=== PATIENT | male | born 1985 | race Caucasian/White ===

== ENCOUNTER → 2020-03-19 | Outpatient (CLI) | payer OTHER ==
[~2020-03-19] MED LIST: IBUPROFEN 800800 M1 PO; KEFLEX500 M1 PO; NORCO 5-325 TA1 EAC2 PO; NORCO 5-325 TA1 EACH PO; PEPCID AC20 M1 PO; ZOFRAN4 MG PO
== END ==
LOC: M.LAB 11:03
PROVIDERS: ATTEND Surgery
DX: Z01.812 Encounter for preprocedural laboratory examination (principal); Z20.828 Contact with and (suspected) exposure to other viral communicable diseases; K80.20 Calculus of gallbladder without cholecystitis without obstruction

== ENCOUNTER → 2020-03-22 | Day surgery (SDC) | payer OTHER ==
--- NOTE | ~2020-03-22 | OP ---
[facility] [address] [place] [address] OPERATIVE REPORT Name: JERONIMO AVILES Room: [facility].#: [id number] Admission: 03/22/20 Attend Phys: Mack Stewart Discharge: Date of : 85 Report #: [id number] THIS REPORT FOR: //name// cc: Valdemar Rutledge MD, Dean L. MD ~ CC: Valdemar Stewart DATE OF SERVICE: 03/22/2020 PREOPERATIVE DIAGNOSIS: Symptomatic cholelithiasis. POSTOPERATIVE DIAGNOSIS: Symptomatic cholelithiasis. OPERATION: Laparoscopic cholecystectomy. SURGEON: Mack Stewart MD ANESTHESIA: General. ESTIMATED BLOOD LOSS: Minimal. SPECIMEN: Gallbladder. DESCRIPTION OF PROCEDURE: After informed consent was obtained, the patient was brought to the operating room and placed supine. SCDs were placed and working, preoperative antibiotics were administered, general anesthesia was induced. The abdomen was prepped and draped in the usual sterile fashion. A 10 mm incision was made above the umbilicus. Fascia was incised and a trocar was placed. Pneumoperitoneum was established. Three right upper quadrant 5 mm ports were placed. Gallbladder was grasped at the fundus and retracted cephalad. Infundibulum was grasped and retracted laterally. I dissected out the cystic duct and cystic artery as well as the cystic plate. The cystic duct and artery were clipped and ligated leaving 2 clips on the remaining duct and one on the remaining artery. Gallbladder was then taken off the liver bed with electrocautery. There was excellent hemostasis. Gallbladder was then placed into an Endopouch and removed. Fascia was then closed with a glydlm-ko-kemrb 0 Vicryl. Skin was closed with 4-0 Monocryl. Incisions were sealed with Dermabond. COMPLICATIONS: [place] [address] OPERATIVE REPORT Name: JERONIMO AVILES Room: [facility]#: [id number] Admission: 03/22/20 Attend Phys: Mack Stewart Discharge: Date of : 85 Report #: [id number] DISPOSITION: The patient was taken to recovery in satisfactory condition. By: [id number] Stewart MD /asha
--- NOTE | 2020-03-26 15:11 | PATH ---
[address] [address] PATHOLOGY RPT PROCEDURE Name: JERONIMO AVILES Room: [facility] M.Cassandra.#: [id number] Admission: 03/22/20 Date of : 85 Discharge: Report #: [id number] Path Case #: [id number] [facility] Accession Number: [id number] . 01 Material submitted: . gallbladder - GALLBLADDER AND CONTENTS . 01 Clinical history: . CALCULOUS OF GALLBLADDER . 02 Diagnosis: Gallbladder and contents: - Chronic cholecystitis, cholesterolosis and cholelithiasis. (STEVE:marni; 03/26/2020) R 03/26/2020 1119 Local . 02 Electronically signed: . Molina El MD, Pathologist NPI- [id number] . 01 Gross description: . Received in formalin labeled "Jeronimo Aviles, gallbladder and contents" is an intact cholecystectomy specimen measuring 7.6 x 4.2 x 3.2 cm. The serosa is moe-green and smooth and the specimen is opened to reveal dark green velvety mucosa with moderate yellow stippling. The mucosa is without polyps or masses. The average wall thickness is 0.1-0.2 cm. Two moe-green bosselated calculi are present within the gallbladder, measuring 0.6 and 1.4 cm in greatest dimension. Skein Straightener sections of the fundus and body and the cystic duct margin are submitted in A1. ([facility]; 03/24/2020) [facility] 03/24/2020 1210 Local . 02 Pathologist provided ICD-10: K80.10 . 02 CPT . 595636 Specimen Comment: A courtesy copy of this report has been sent to [phone] Specimen Comment: [phone] Specimen Comment: Report sent to / DR FORD Performed at: [address] [facility] [address] [id number] MD Daniel Zavaleta MD Phone: [phone] Performed at: [address] [facility] [address] [id number] [place] [address] PATHOLOGY RPT PROCEDURE Name: JERONIMO AVILES Room: [facility]#: [id number] Admission: 03/22/20 Date of : 85 Discharge: Report #: [id number] Path Case #: [id number] MD Molina El MD Phone: [phone]
== END | disposition home or self-care (01) ==
LOC: M.SUR 05:30
PROVIDERS: ATTEND Surgery
DX: K80.20 Calculus of gallbladder without cholecystitis without obstruction (principal); R10.11 Right upper quadrant pain; K21.9 Gastro-esophageal reflux disease without esophagitis; Z98.890 Other specified postprocedural states; Z79.899 Other long term (current) drug therapy